=== PATIENT | female | born 1990 | race Asian ===

== ENCOUNTER 2017-05-04 22:59 | Emergency (ER) | payer OTHER ==
[2017-05-04 23:29] VITALS: BP 125/64
== END 2017-05-05 02:51 | disposition home or self-care (01) ==
LOC: ED 22:59
DX: S20.221A Contusion of right back wall of thorax, initial encounter (principal); Z88.5 Allergy status to narcotic agent; V49.9XXA Car occupant (driver) (passenger) injured in unspecified traffic accident, initial encounter; Y93.89 Activity, other specified; Y99.8 Other external cause status; Y92.89 Other specified places as the place of occurrence of the external cause
CPT/HCPCS: 72072; J1885; Q0162